=== PATIENT | male | born 1970 | race Hispanic/Latino ===

== ENCOUNTER 2023-08-11 14:44 | Emergency (ER) | payer OTHER, SELFPAY ==
[2023-08-11 14:51] VITALS: BP 164/90
--- NOTE | 2023-08-11 15:37 | EDRN ---
Dr. Olguin in room w/pt at this time.
--- NOTE | 2023-08-11 15:44 | ED.GENMED ---
History of Present Illness
General
Chief Complaint: Abdominal Pain
Source: patient and spouse
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
Time Seen by Provider: 08/11/23 15:25
Travel History
Have you had any contact with someone who has COVID-19?: No
Do you have any symptoms of coronavirus? Fever > 100 degrees, chills, cough, shortness of breath, sore throat, loss of taste or smell, muscle aches, or headache?: No
History of Present Illness
History of Present Illness:
This patient is a 53-year-old male presents emergency department complaints of abdominal pain that started on evening. 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 He notes that the pain is improved since taking Excedrin on a regular basis, but still present. The pain is in the mid to upper abdominal area and does not radiate
through the back but he notes associated mid back pain as well. He describes the pain as a 'pulling'. He has had repeated episodes of vomiting/dry heaves, is anorexic and nauseous. He denies dyspnea, leg swelling, urinary symptoms, constipation.
His last bowel movement was this morning was normal in color and consistency. When asked about chest pain he says he feels a 'tight' feeling only when he coughs.
Past History
Past History
ED Past Medical History: Hypercholesterolemia and NIDDM
ED Past Surgical History: Appendectomy
Social History
Tobacco: Smoker
Alcohol: Occasional
Drug: None
Personal:
Employment: Employed
Phy Exam
Physical Exam
Physical Exam:
GENERAL: Alert , in no apparent distress
EYE: pupils equal and reactive
NECK: Supple, no significant adenopathy.
ENT: o/p clr, mmm.
CARDIAC: Regular rate and rhythm .
LUNGS: Clear breath sounds bilaterally, no acute respiratory distress, no wheezes/rales/rhonchi
ABDOMEN: Soft, mild upper abdominal tenderness, no r/g, no cvat
NEUROLOGICAL: Alert and oriented, no focal neuro deficits
SKIN: Warm and dry, skin intact.
MUSCULOSKELETAL: No edema, well perfused.
PSYCH: Normal and appropriate interaction.
Course
Orders/Labs/Results
Orders:
Orders
08/11/23 15:01
Electrocardiogram (*1) Urgent
Reason for Study: Abdominal Pain
EKG- Treatment ONCE
08/11/23 15:40
US Abdomen Complete/Upper Urgent
Comment:
Reason For Exam: upper abd pain
08/11/23 16:03
Complete Blood Count/No Diff Urgent
Comprehensive Metabolic Panel Urgent
D-Dimer Stat
Lipase Urgent
Urinalysis Reflex To Culture Urgent
Date Specimen was Collected: 08/11/23
Time Specimen was Collected: 15:54
Urine Microscopic Reflex Cult Urgent
08/11/23 17:02
CT Abd/pelvis W Iv Cont Stat
Comment:
Reason For Exam: upper abd pain, n/v
Abnormal Lab Results
08/11/23
16:03
WBC 11.9 H 10^3/uL
(4.8-10.8)
MPV 10.7 H fL
(7.4-10.4)
BUN 22 H mg/dl
(9-20)
Glucose 236 H mg/dl
(70-99)
Calcium 8.1 L mg/dl
(8.4-10.2)
Total Protein 6.1 L g/dl
(6.3-8.2)
Lipase 304 H U/L
(23-300)
Urine Ketones Trace A
(Negative)
Ur Occult Blood Reflex Trace A
(Negative)
Urine Bacteria (Reflex) Few A
(Negative)
Urine Glucose 2+ A
(Negative)
08/11/23 16:03
08/11/23 16:03
Vital Signs
Initial and Last Documented VS:
Initial Vital Signs
Temp Pulse Resp BP Pulse Ox
97.4 F 82 16 164/90 96
08/11/23 14:51 08/11/23 14:51 08/11/23 14:51 08/11/23 14:51 08/11/23 14:51
Last Documented Vital Signs
Temp Pulse Resp BP Pulse Ox
97.4 F 57 16 136/81 95
08/11/23 14:51 08/11/23 18:09 08/11/23 18:09 08/11/23 18:09 08/11/23 18:09
*Critical Care Note
Total Time (30-74mins, 75-104mins- exclusive of procedures): Not Applicable
Update Note
Update Note:
Patient presents to the Emergency Department with ___abdominal pain
Number and Complexity of Problems Addressed at the Encounter
� Chronic conditions affecting care:
� Acute Exacerbation and/or Progression of Chronic Illness:
� Differential Diagnosis includes: But not limited to Ozempic related pancreatitis, cholecystitis, bowel obstruction, cholelithiasis, etc.
Amount and/or Complexity of Data to be Reviewed and Analyzed
� I performed an independent evaluation of and my interpretation is:
EKG: Read by me, normal sinus rhythm, normal rate, normal axis, no acute ischemia
CT:�No CT evidence for an acute inflammatory process in the abdomen or pelvis.
2. Hepatomegaly and severe hepatic steatosis.
3. Bilateral adrenal gland nodules are incompletely characterized on this exam but most likely to represent adrenal adenomas.
Xrays:
Laboratory Studies: Mild white blood cell count elevation which may be consistent with infection or reactive. Mild glucose elevation without acidosis, patient with a history of diabetes. Lipase slightly elevated, not
consistent with acute pancreatitis
Other: Ultrasound shows adeno mitosis of gallbladder, hepatic steatosis, no stones noted
� Review of other/old records reveals:
� Clinical information was obtained by an independent historian:
� Prescriptions/Medications Considered but not given:
� Further testing considered but not performed:
Risk of Complications and/or Morbidity or Mortality of Patient Management
� Social determinants of health affecting care:
� Discussion with other providers (PCP, Hospitalists, Consultants, etc):
� Escalation of care including admission/observation vs risk of discharge considered: 5:04 PM workup unrevealing thus far, will check CAT scan.
7:35 PM patient is now pain-free. Workup here is generally unremarkable and unrevealing for the specific etiology of his pain that he had earlier. I printed out his CAT scan and ultrasound and discussed with in great detail using her as an
logging shovel operator for patient at their request regarding the abnormalities found and the need for close follow-up regarding although I do not see abnormalities that would cause his symptoms. Discussed with patient importance of follow-up overall and
reasons to return to the emergency department including return of pain. Patient well-appearing, abdomen soft
ED Attending Note
-
Portions of this chart may have been created with voice recognition software.� Occasional wrong word or��sound alike� substitutions may have occurred due to the inherent limitations of voice recognition software.
Discharge Plan
Departure
Patient Disposition: Home (Routine Discharge)
Date of Disposition: 08/11/23
Time of Disposition: 19:34
Patient with high blood pressure during this ER visit?: Yes
Condition: Good
Discharge Problem:
Abdominal pain
Instructions: Abdominal Pain, BLOOD PRESSURE
Referrals:
Aaron Sultana MD [Family Provider] - Follow up in 2-3 days
Activity Restrictions/Additional Instructions:
YOU HAVE FINDINGS ON YOUR CAT SCAN ULTRASOUND AND LABORATORY EVALUATION THAT REQUIRE CLOSE FOLLOW-UP. PLEASE BRING THE ATTACHED REPORTS YOU WHEN YOU SEE YOUR DOCTOR ON SUNDAY. IF YOU DEVELOP RECURRENT OR NEW PAIN, NAUSEA, VOMITING, FEVER, CHILLS,
CHEST PAIN, SHORTNESS OF BREATH, OR OTHER WORRISOME SIGNS, PLEASE RETURN TO THE ER IMMEDIATELY!
Interventions
Interventions:
*Risk Screen - Suicide Last Done: 08/11/23 15:52
*General Assessment Last Done: 08/11/23 15:52
*Neglect/Abuse Screening Last Done: 08/11/23 15:52
ED- Fall Risk Assessment Last Done: 08/11/23 16:00
*ED COVID-19 Vaccine History Last Done: 08/11/23 15:52
CF-Wizjmm-Zmusfallgs Assessment Last Done: 08/11/23 16:00
[2023-08-11 16:05] VITALS: BP 130/79
[2023-08-11 16:10] VITALS: BMI 43.6
[2023-08-11 16:10] LABS: Hematocrit 40.2 % (39.0-52.0); Hemoglobin 13.7 g/dL (13.0-18.0); Mean Corp Hgb Conc. 34.1 g/dL (33.0-37.0); Mean Corpuscular Hgb 28.5 pg (27.0-31.0); Mean Corpuscular Volume 83.8 fL (80.0-94.0); Mean Platelet Volume 10.7 fL (7.4-10.4); Platelet Count 285 10^3/uL (130-400); White Blood Cell Count 11.9 10^3/uL (4.8-10.8)
[2023-08-11 16:17] LABS: Urine Albumin Trace (Neg - Trace); Urine Bilirubin Negative (Negative); Urine Character Clear (Clear); Urine Color Yellow; Urine Glucose 2+ (Negative); Urine Ketone Trace (Negative); Urine Leukocyte Negative (Negative); Urine Nitrite Negative (Negative); Urine Occult Blood Trace (Negative); Urine Specific Gravity 1.015 (<1.030); Urine Urobilinogen Negative (Neg - 1+)
[2023-08-11 16:27] LABS: Urine Bacteria Few (Negative); Urine Red Blood Cell 0-2 /HPF (0-2); Urine White Cell 0-2 /HPF (0-5)
[2023-08-11 16:31] LABS: ALT (SGPT) 32 U/L (0-50); AST (SGOT) 28 U/L (17-59); Albumin 3.7 g/dl (3.5-5.0); Alkaline Phosphatase 77 U/L (38-126); Blood Urea Nitrogen 22 mg/dl (9-20); Calcium 8.1 mg/dl (8.4-10.2); Carbon Dioxide 28 mmol/L (22-30); Chloride 103 mmol/L (98-107); Estimated Creatinine Clearance > 125 ml/min; Glucose 236 mg/dl (70-99); Lipase 304 U/L (23-300); Potassium 3.9 mmol/L (3.5-5.1); Sodium 135 mmol/L (135-145); Total Bilirubin 0.5 mg/dl (0.2-1.3); Total Protein 6.1 g/dl (6.3-8.2); eGFR > 60.00
--- NOTE | 2023-08-11 17:10 | EDRN ---
Called CT and IV is ok for CT of abd.
[2023-08-11 17:14] VITALS: BP 142/84
[2023-08-11 18:09] VITALS: BP 136/81
== END 2023-08-11 19:53 | disposition home or self-care (01) ==
LOC: EMR 14:44
PROVIDERS: EMERGENCY PHYSICIAN Emergency Medicine; FAMILY PHYSICIAN Internal Medicine
DX: R10.10 Upper abdominal pain, unspecified (principal); F17.200 Nicotine dependence, unspecified, uncomplicated; R03.0 Elevated blood-pressure reading, without diagnosis of hypertension
CPT/HCPCS: 99285; 74177; 76700; 80053; 81003; 81015; 83690; 85027; 85379; 93005; Q9967

== ENCOUNTER 2024-06-14 15:10 | Emergency (ER) | payer OTHER, SELFPAY ==
[2024-06-14 15:15] VITALS: BP 181/90
[2024-06-14 15:34] LABS: % Basophils 0.9 % (0-2); % Immature Granulocytes 1.2 % (0-0.5); % Lymphocytes 34.5 % (20.5-51.1); % Monocytes 6.3 % (1.7-9.3); % Neutrophils 55.1 % (42.2-75.2); Absolute Basophils 0.1 10^3/uL (0-0.2); Absolute Eosinophils 0.2 10^3/uL (0-0.7); Absolute Immature Granulocytes 0.1 10^3/uL (0-0.05); Absolute Lymphocytes 3.6 10^3/uL (1.2-3.4); Absolute Monocytes 0.7 10^3/uL (0.1-0.6); Absolute Neutrophils 5.8 10^3/uL (1.4-6.5); Hematocrit 40.2 % (39.0-52.0); Hemoglobin 13.3 g/dL (13.0-18.0); Mean Corp Hgb Conc. 33.1 g/dL (33.0-37.0); Mean Corpuscular Hgb 27.9 pg (27.0-31.0); Mean Corpuscular Volume 84.3 fL (80.0-94.0); Mean Platelet Volume 10.1 fL (7.4-10.4); Nucleated Red Blood Cells % 0 % (-); Platelet Count 397 10^3/uL (130-400); Red Blood Cell Count 4.77 10^6/uL (4.70-6.10); Red Cell Dist. Width 14.2 % (11.5-14.5); White Blood Cell Count 10.5 10^3/uL (4.8-10.8)
[2024-06-14 15:53] LABS: COVID-19 Antigen Negative (Negative)
[2024-06-14 15:54] LABS: ALT (SGPT) 198 U/L (0-50); AST (SGOT) 78 U/L (17-59); Albumin 3.9 g/dl (3.5-5.0); Alkaline Phosphatase 366 U/L (38-126); Blood Urea Nitrogen 18 mg/dl (9-20); Calcium 9.4 mg/dl (8.4-10.2); Carbon Dioxide 25 mmol/L (22-30); Chloride 103 mmol/L (98-107); Glucose 338 mg/dl (70-99); Potassium 4.4 mmol/L (3.5-5.1); Sodium 136 mmol/L (135-145); Total Bilirubin 1.2 mg/dl (0.2-1.3); Total Protein 6.8 g/dl (6.3-8.2); eGFR > 60.00
[2024-06-14 16:54] VITALS: BP 168/85
[2024-06-14 17:32] LABS: D-Dimer 0.69 ug/mlFEU (0.00-0.50)
[2024-06-14 17:36] LABS: Urine Albumin Trace (Neg - Trace); Urine Bilirubin Negative (Negative); Urine Character Clear (Clear); Urine Color Amber; Urine Glucose 3+ (Negative); Urine Ketone Negative (Negative); Urine Leukocyte Negative (Negative); Urine Nitrite Negative (Negative); Urine Occult Blood Trace (Negative); Urine Urobilinogen 1+ (Neg - 1+)
[2024-06-14 18:05] LABS: Urine Mucus Few
[2024-06-14 18:06] LABS: Urine White Cell 0-2 /HPF (0-5)
[2024-06-14 18:11] LABS: TSH Reflex To Free T4 0.89 uIU/ml (0.47-4.68)
[2024-06-14 18:31] LABS: Troponin I < 0.012 ng/ml
--- NOTE | 2024-06-14 19:02 | ED.GENMED ---
History of Present Illness
General
Chief Complaint: Fever
Source: patient
Exam Limitations: none
Time Seen by Provider: 06/14/24 16:28
History of Present Illness
History of Present Illness:
54-year-old male presents with multiple vague complaints of fatigue intermittent sweats and chills. He denies a cough or headache. He denies chest pain abdominal pain nausea vomiting. He notes occasional shortness of breath. 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 No leg swelling. No recent rash or tick bite. No known sick contacts. He has history of pzh-pkniacx-pdezmomya diabetes. No other complaints at this time
Past History
Past History
ED Past Medical History: Hypercholesterolemia and NIDDM
ED Past Surgical History: Appendectomy
Social History
Tobacco: Smoker
Alcohol: Occasional
Drug: None
Personal:
Employment: Employed
Phy Exam
Physical Exam
Physical Exam:
General: Well-appearing male nontoxic no acute respiratory distress
HEENT: Normocephalic atraumatic heart: Regular rate and rhythm no murmurs
Lungs: Clear no wheeze abdomen is soft nontender nondistended no guarding rebound normal bowel sounds
Extremities: No cyanosis
Skin is warm no rash
Neurologic exam: Alert and oriented no facial asymmetry no slurred speech
Course
Orders/Labs/Results
Orders:
Orders
06/14/24 15:26
CMP [Comprehensive Metabolic Panel] Urgent
COVID-19 Antigen Urgent
Source: Nasal Swab
Complete Blood Count/With Diff Urgent
Influenza A+B Rapid Molecular Urgent
CORRY Source: Nasal Swab
Specimen Description:
06/14/24 16:58
CR Chest - 2 Views Urgent
Comment:
Reason For Exam: fatigue
06/14/24 17:04
D-Dimer Urgent
Lyme Progressive Urgent
TSH Reflex To Free T4 Urgent
06/14/24 17:21
Urinalysis Reflex To Culture Urgent
Date Specimen was Collected: 06/14/24
Time Specimen was Collected: 17:09
Urine Microscopic Reflex Cult Urgent
06/14/24 17:40
CT Chest Pe Study Urgent
Comment:
Reason For Exam: fatigue, elevated d-dimer
06/14/24 18:01
Troponin I Urgent
06/14/24 18:09
Electrocardiogram (*1) Urgent
Reason for Study: Shortness of Breath
EKG- Treatment ONCE
Abnormal Lab Results
06/14/24 06/14/24 06/14/24
15:26 17:04 17:21
Abs Immat Gran (auto) 0.1 H 10^3/uL
(0-0.05)
Absolute Lymphs (auto) 3.6 H 10^3/uL
(1.2-3.4)
Absolute Monos (auto) 0.7 H 10^3/uL
(0.1-0.6)
Immature Gran % 1.2 H %
(0-0.5)
D-Dimer 0.69 H ug/mlFEU
(0.00-0.50)
Glucose 338 H mg/dl
(70-99)
AST 78 H U/L
(17-59)
ALT 198 H U/L
(0-50)
Alkaline Phosphatase 366 H U/L
(38-126)
Ur Occult Blood Reflex Trace A
(Negative)
Urine RBC 3-6 A /HPF
(0-2)
Urine Glucose 3+ A
(Negative)
06/14/24 15:26
06/14/24 15:26
Vital Signs
Initial and Last Documented VS:
Initial Vital Signs
Temp Pulse Resp BP Pulse Ox
98.6 F 63 18 181/90 97
06/14/24 15:15 06/14/24 15:15 06/14/24 15:15 06/14/24 15:15 06/14/24 15:15
Last Documented Vital Signs
Temp Pulse Resp BP Pulse Ox
98.6 F 60 18 168/85 96
06/14/24 15:15 06/14/24 16:54 06/14/24 15:15 06/14/24 16:54 06/14/24 16:54
MDM/Problems Addressed
Differential Diagnosis Includes:
Patient with fatigue occasional sweats muscle aches. Differential could include uncontrolled diabetes verse electrolyte abnormality versus viral illness versus Lyme disease. 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
of PE secondary to the shortness of breath. D-dimer slightly elevated which prompted a PE study. This was negative. COVID and flu test were negative. Lyme test is pending. Other than slightly elevated serum glucose lab work otherwise within
normal limits. No anion gap. I suspect likely viral illness recommended supportive care with hydration and rest. Stable for discharge.
*Critical Care Note
Total Time (30-74mins, 75-104mins- exclusive of procedures): Not Applicable
ED Attending Note
-
Portions of this chart may have been created with voice recognition software.� Occasional wrong word or��sound alike� substitutions may have occurred due to the inherent limitations of voice recognition software.
Discharge Plan
Departure
Patient Disposition: Home (Routine Discharge)
Date of Disposition: 06/14/24
Time of Disposition: 19:04
Patient with high blood pressure during this ER visit?: No
Discharge Problem:
Fatigue
Instructions: Viral Syndrome (DC)
Referrals:
Aaron Sultana MD [Family Provider] -
Activity Restrictions/Additional Instructions:
Please return here for worsening symptoms. Ensure plenty of hydration. Follow-up with your doctor otherwise
Interventions
Interventions:
*Risk Screen - Suicide Last Done: 06/14/24 15:15
*General Assessment Last Done: 06/14/24 15:15
*ED COVID-19 Vaccine History Last Done: 06/14/24 15:15
ED-Skin Assessment Last Done: 06/14/24 18:46
Discharge Date and Time
Print Language: MACEDONIAN
[2024-06-14 19:21] VITALS: BP 164/93
[2024-06-16 16:27] LABS: Lyme Antibody Screen, EIA Negative (Negative)
== END 2024-06-14 19:22 | disposition home or self-care (01) ==
LOC: EMR 15:10
PROVIDERS: Physician Assistant; EMERGENCY PHYSICIAN Emergency Medicine; FAMILY PHYSICIAN Internal Medicine
DX: R53.83 Other fatigue (principal); Z11.52 Encounter for screening for COVID-19; F17.200 Nicotine dependence, unspecified, uncomplicated
CPT/HCPCS: 99285; 71046; 71275; 80053; 81003; 81015; 84443; 84484; 85025; 85379; 86618; 87502; 87811; 93005; Q9967

== ENCOUNTER 2024-12-05 14:22 | Emergency (ER) | payer OTHER, SELFPAY ==
[2024-12-05 14:29] VITALS: BP 122/59
[2024-12-05 14:50] LABS: % Basophils 0.3 % (0-2); % Eosinophils 0.2 % (0-6); % Immature Granulocytes 0.8 % (0-0.5); % Lymphocytes 16.3 % (20.5-51.1); % Monocytes 3.8 % (1.7-9.3); % Neutrophils 78.6 % (42.2-75.2); Absolute Immature Granulocytes 0.1 10^3/uL (0-0.05); Absolute Lymphocytes 2.5 10^3/uL (1.2-3.4); Absolute Monocytes 0.6 10^3/uL (0.1-0.6); Absolute Neutrophils 12.2 10^3/uL (1.4-6.5); Hematocrit 26.3 % (39.0-52.0); Mean Corp Hgb Conc. 34.2 g/dL (33.0-37.0); Mean Corpuscular Hgb 28.5 pg (27.0-31.0); Mean Corpuscular Volume 83.2 fL (80.0-94.0); Nucleated Red Blood Cells % 0 % (-); Platelet Count 498 10^3/uL (130-400); Red Blood Cell Count 3.16 10^6/uL (4.70-6.10); Red Cell Dist. Width 15.8 % (11.5-14.5); White Blood Cell Count 15.5 10^3/uL (4.8-10.8)
[2024-12-05 15:18] VITALS: BP 113/66
[2024-12-05 15:19] LABS: ALT (SGPT) 92 U/L (0-50); AST (SGOT) 69 U/L (17-59); Albumin 3.7 g/dl (3.5-5.0); Alkaline Phosphatase 758 U/L (38-126); Blood Urea Nitrogen 10 mg/dl (9-20); Calcium 8.9 mg/dl (8.4-10.2); Carbon Dioxide 21 mmol/L (22-30); Chloride 98 mmol/L (98-107); Glucose 176 mg/dl (70-99); Lipase 1579 U/L (23-300); Sodium 129 mmol/L (135-145); Total Bilirubin 8.7 mg/dl (0.2-1.3); Total Protein 7.3 g/dl (6.3-8.2); eGFR > 60.00
[2024-12-05 15:41] LABS: Direct Bilirubin 6.6 mg/dl (0.0-0.4)
--- NOTE | 2024-12-05 16:14 | ED.GENMED ---
History of Present Illness
General
Chief Complaint: Abdominal Pain
Time Seen by Provider: 12/05/24 15:21
History of Present Illness
History of Present Illness:
The patient is a 54-year-old male with a history of diabetes, presenting with several symptoms. He has been having right upper quadrant abdominal pain back pain vomiting nausea chills sweats and weight loss for the past 6 months. In May he
came to the emergency department for an evaluation when he was starting to have some of the symptoms. Went to his primary care doctor who ordered an ultrasound which was negative. He had a follow-up with the GI team and had an MRCP which they not
have the results of. He has been following by [facility]. No history of alcohol use. Does have history of diabetes.
Past History
Past History
ED Past Medical History: Hypercholesterolemia and NIDDM
ED Past Surgical History: Appendectomy
Social History
Tobacco: Smoker
Alcohol: Occasional
Drug: None
Personal:
Employment: Employed
Phy Exam
Physical Exam
Physical Exam:
GENERAL: in no acute distress, jaundice
HEENT: normocephalic, extraocular movements intact, moist oral mucosa
NECK: normal inspection
RESPIRATORY: no respiratory distress, clear to auscultation bilaterally
CARDIOVASCULAR: regular rate and rhythm
ABDOMEN/: soft, non-distended, right upper quadrant tenderness to palpation, no rebound or guarding
EXTREMITIES: non-tender, no edema/swelling
NEUROLOGIC: awake and alert, moves all extremities
SKIN: warm
Course
Orders/Labs/Results
Orders:
Orders
12/05/24 14:44
Complete Blood Count/With Diff Urgent
Comprehensive Metabolic Panel Urgent
Direct Bilirubin Urgent
Comment: ADD ON
Lipase Urgent
12/05/24 15:22
Add On- LAB Urgent
Tests Added?: direct biliruibin
12/05/24 16:00
CT Abd/pelvis W Iv Cont Urgent
Comment:
Reason For Exam: transaminitis, obstructive jaundice
12/05/24 16:36
Urinalysis Reflex To Culture Urgent
Date Specimen was Collected: 12/05/24
Time Specimen was Collected: 16:24
Urine Microscopic Reflex Cult Urgent
Abnormal Lab Results
12/05/24 12/05/24
14:44 16:36
WBC 15.5 H 10^3/uL
(4.8-10.8)
RBC 3.16 L 10^6/uL
(4.70-6.10)
Hgb 9.0 L g/dL
(13.0-18.0)
Hct 26.3 L %
(39.0-52.0)
RDW 15.8 H %
(11.5-14.5)
Plt Count 498 H 10^3/uL
(130-400)
Abs Immat Gran (auto) 0.1 H 10^3/uL
(0-0.05)
Absolute Neuts (auto) 12.2 H 10^3/uL
(1.4-6.5)
Immature Gran % 0.8 H %
(0-0.5)
Neutrophils % 78.6 H %
(42.2-75.2)
Lymphocytes % 16.3 L %
(20.5-51.1)
Sodium 129 L mmol/L
(135-145)
Carbon Dioxide 21 L mmol/L
(22-30)
Glucose 176 H mg/dl
(70-99)
Total Bilirubin 8.7 H mg/dl
(0.2-1.3)
Direct Bilirubin 6.6 H mg/dl
(0.0-0.4)
AST 69 H U/L
(17-59)
ALT 92 H U/L
(0-50)
Alkaline Phosphatase 758 H U/L
(38-126)
Lipase 1579 H* U/L
(23-300)
Urine Bilirubin 1+ A
(Negative)
Urine Bacteria (Reflex) Few A
(Negative)
Urine Albumin (Reflex) 1+ A
(Neg - Trace)
12/05/24 14:44
12/05/24 14:44
Vital Signs
Initial and Last Documented VS:
Initial Vital Signs
Temp Pulse Resp BP Pulse Ox
98.2 F 85 16 122/59 98
12/05/24 14:29 12/05/24 14:29 12/05/24 14:29 12/05/24 14:29 12/05/24 14:29
Last Documented Vital Signs
Temp Pulse Resp BP Pulse Ox
98.2 F 80 20 146/78 98
12/05/24 14:29 12/05/24 17:07 12/05/24 17:07 12/05/24 17:07 12/05/24 17:07
MDM/Problems Addressed
Differential Diagnosis Includes:
Patient is a 54-year-old male with history of diabetes presenting to the emergency room with abdominal pain back pain vomiting chills weight loss. Vitals are unremarkable exam does show a jaundiced male with right upper quadrant tenderness.
Concern for biliary or hepatic etiology versus malignancy. Blood work obtained prior to evaluation does show hyponatremia likely from dehydration. He does have obstructive jaundice as well as transaminitis and elevated lipase. He does have
leukocytosis. Will obtain CT scan of the abdomen pelvis given the abdominal pain and back pain.
*Pulse Oximetry
Patient hypoxic: no (98)
*Critical Care Note
Total Time (30-74mins, 75-104mins- exclusive of procedures): Not Applicable
Update Note
Update Note:
I did discuss with GI here as patient is looking to transfer care. However our advanced endoscopist is not available. Patient is agreeable to transfer. I initially discussed with [facility] as that is who patient thought he followed with. However
after searching his GI doctor gautam is with [facility]. I did discuss with [facility] who accepted patient to their service. CT results pending at the time of transfer.
ED Attending Note
-
Portions of this chart may have been created with voice recognition software.� Occasional wrong word or��sound alike� substitutions may have occurred due to the inherent limitations of voice recognition software.
Discharge Plan
Departure
Patient Disposition: Acute Care Hospital
Date of Disposition: 12/05/24
Time of Disposition: 17:51
Discharge Problem:
Pancreatitis, Bilirubinemia
Referrals:
Aaron Sultana MD [Family Provider, Internal Medicine]
Hospital Transfer
Other hospital: [facility]
I certify that the patient requires transfer: Yes
Discussed case with accepting physician: Dr Velez
Reason for transfer: specialties available
Interventions
Interventions:
*Risk Screen - Suicide Last Done: 12/05/24 14:29
*General Assessment Last Done: 12/05/24 15:17
*Neglect/Abuse Screening Last Done: 12/05/24 14:29
AK-Owllxf-Wxaktgnenj Assessment Last Done: 12/05/24 15:17
Discharge Date and Time
Print Language: [place]
[2024-12-05 16:57] LABS: Urine Albumin 1+ (Neg - Trace); Urine Bilirubin 1+ (Negative); Urine Character Clear (Clear); Urine Color Yellow; Urine Glucose Negative (Negative); Urine Ketone Negative (Negative); Urine Leukocyte Negative (Negative); Urine Nitrite Negative (Negative); Urine Occult Blood Negative (Negative); Urine Urobilinogen 1+ (Neg - 1+)
[2024-12-05 17:07] VITALS: BP 146/78
[2024-12-05 17:09] LABS: Urine Squamous Cell 0-2 /LPF (Few)
[2024-12-05 17:10] LABS: Urine Bacteria Few (Negative); Urine Red Blood Cell 0-2 /HPF (0-2); Urine White Cell 0-2 /HPF (0-5)
[2024-12-05 18:16] VITALS: BP 120/66
[2024-12-05 23:21] VITALS: BP 131/64
[2024-12-06 05:09] VITALS: BP 146/72
== END 2024-12-06 05:27 | disposition short-term general hospital (02) ==
LOC: EMR 14:22
PROVIDERS: Emergency Medicine; EMERGENCY PHYSICIAN Student in an Organized Health Care Education/Training Program; FAMILY PHYSICIAN Internal Medicine
DX: K85.90 Acute pancreatitis without necrosis or infection, unspecified (principal); E80.7 Disorder of bilirubin metabolism, unspecified; E11.9 Type 2 diabetes mellitus without complications; F17.200 Nicotine dependence, unspecified, uncomplicated
CPT/HCPCS: 99285; 74177; 80053; 81003; 81015; 82248; 83690; 85025; Q9967